=== PATIENT | female | born 1975 | race Caucasian/White ===

== ENCOUNTER 2019-09-22 17:36 | Inpatient (IN) | payer BC ==
[2019-09-22] MEDS ORDERED: Naloxone 0.4 MG/ML SDV IVPUSH PRN (18:47)
[2019-09-22] MEDS ORDERED: Ondansetron 4 MG/2 ML SDV IVPUSH PRN (18:47)
[2019-09-22] MEDS ORDERED: Metoprolol Succinate 50 MG Tab.ER PO ONE (18:47)
[2019-09-22] MEDS ORDERED: Pantoprazole 40 MG Vial IVPUSH SCH (19:00)
[2019-09-22] MEDS ORDERED: HYDROmorphone/Normal Saline 15 MG/30 ML PCA IV SCH (19:00)
[2019-09-22] MEDS: Dextrose 5%-Lactated Ringers 1,000 ML IV SCH (19:31)
[2019-09-23] MEDS: Dextrose 5%-Lactated Ringers 1,000 ML IV SCH ×3 (02:02→23:38)
[2019-09-23] MEDS ORDERED: Meropenem 500 MG SDV ONE (06:37)
[2019-09-23] MEDS ORDERED: Lidocaine 1% with EPINEPHrine 1:100,000 50 ML MDV ONE (06:37)
[2019-09-23] MEDS ORDERED: Bupivacaine 0.5% 50 ML MDV ONE (06:37)
[2019-09-23] MEDS ORDERED: Dexamethasone 4 MG/ML SDV ONE (07:12)
[2019-09-23] MEDS ORDERED: Glycopyrrolate 0.2 MG/ML 5 ML MDV ONE (07:12)
[2019-09-23] MEDS ORDERED: fentaNYL 250 MCG/5 ML SDV ONE ×2 (07:12→09:06)
[2019-09-23] MEDS ORDERED: Neostigmine Methylsulfate 1 MG/ML 5 ML Syringe ONE (07:12)
[2019-09-23] MEDS ORDERED: Rocuronium 50 MG/5 ML Vial ONE ×2 (07:12→08:34)
[2019-09-23] MEDS ORDERED: Succinylcholine 200 MG/10 ML MDV ONE (07:12)
[2019-09-23] MEDS ORDERED: Ondansetron 4 MG/2 ML SDV ONE (07:12)
[2019-09-23] MEDS ORDERED: Propofol 200 MG/20 ML SDV ONE (07:12)
[2019-09-23] MEDS ORDERED: cefOXitin 2 GM in Sodium Chloride 0.9% 50 ML IV ONE (07:30)
[2019-09-23] MEDS ORDERED: Ketamine 50 MG in Sodium Chloride 0.9% 49.5 ML IV SCH (07:30)
[2019-09-23] MEDS ORDERED: Magnesium Sulfate 3.7 GM in Sodium Chloride 0.9% 250 ML IV ONE (07:30)
[2019-09-23] MEDS ORDERED: Magnesium Sulfate 2.3 GM in Sodium Chloride 0.9% 100 ML IV SCH (07:30)
[2019-09-23] MEDS ORDERED: Ropivacaine 40 ML, dexAMETHasone 8 MG, EPINEPHrine 0.4 MG, Sodium Chloride 0.9% 37.6 ML NERVRT SCH ×4 (07:30)
[2019-09-23] MEDS ORDERED: Ketamine 500 MG/5 ML MDV IV SCH (07:30)
[2019-09-23] MEDS ORDERED: Morphine PF 150 MG/30 ML PCA Syringe IV PRN (07:31)
[2019-09-23] MEDS ORDERED: Scopolamine 1.5 MG Transdermal Patch ONE (07:33)
[2019-09-23] MEDS ORDERED: Naloxone 0.4 MG/ML SDV IV PRN (07:40)
[2019-09-23] MEDS ORDERED: Lactated Ringers 1,000 ML ONE (08:34)
[2019-09-23] MEDS ORDERED: Pantoprazole 40 MG Vial IVPUSH SCH ×2 (10:57→21:00)
[2019-09-23] MEDS ORDERED: Metoclopramide 10 MG/2 ML SDV IVPUSH PRN (10:57)
[2019-09-23] MEDS ORDERED: Acetaminophen 500 MG Tab PO PRN (10:57)
[2019-09-23] MEDS ORDERED: diphenhydrAMINE 50 MG/ML SDV IVPUSH PRN (10:57)
[2019-09-23] MEDS ORDERED: hydrOXYzine HCL 100 MG/2 ML SDV IM PRN (10:57)
[2019-09-23] MEDS ORDERED: Labetalol 20 MG/4 ML Syringe IVPUSH PRN (10:57)
[2019-09-23] MEDS ORDERED: Calcium Gluconate 10% 1 GM/10 ML SDV IVPUSH PRN (10:57)
[2019-09-23] MEDS: Cyclobenzaprine 10 MG Tab PO PRN (11:11)
[2019-09-23] MEDS ORDERED: LORazepam 2 MG/ML SDV IVPUSH PRN (12:16)
[2019-09-23] MEDS: Acetaminophen 1,000 MG in Premix Bag 1 BAG IV SCH ×2 (12:26→21:11)
[2019-09-23] MEDS: cefOXitin 2 GM in Sodium Chloride 0.9% 50 ML IV SCH ×2 (14:53→19:47)
[2019-09-23] MEDS: Citalopram 20 MG Tab PO SCH (14:53)
[2019-09-23] MEDS ORDERED: MVI, Adult with Vitamin K 10 ML, Thiamine 200 MG, Chromium/Copper/Mang/Selen/Zn 1 ML in... IV SCH ×4 (16:00)
[2019-09-23] MEDS: Heparin Sodium 5,000 Units/ML Vial SUBCUT SCH (17:35)
[2019-09-23] MEDS: Metoprolol Succinate 50 MG Tab.ER PO SCH (17:35)
[2019-09-23] MEDS: Celecoxib 200 MG Cap PO SCH (21:14)
[2019-09-23] MEDS: Nortriptyline 25 MG Cap PO SCH (21:15)
[2019-09-24] MEDS: cefOXitin 2 GM in Sodium Chloride 0.9% 50 ML IV SCH ×3 (01:44→13:52)
[2019-09-24] MEDS ORDERED: Iopamidol 612 MG/ML 50 ML SDV PO ONE (03:59)
[2019-09-24] MEDS: Acetaminophen 500 MG Tab PO SCH ×3 (04:31→20:41)
[2019-09-24] MEDS: Dextrose 5%-Lactated Ringers 1,000 ML IV SCH (04:36)
--- NOTE | 2019-09-24 04:40 | CRLCR ---
Indication: Post bariatric surgery Technique: Two views of the abdomen obtained following the administration of oral contrast. Comparison: None Findings/Impression: : Contrast opacifies the gastric pouch and traverses the gastrojejunostomy to opacify left abdominal and pelvic jejunal segments. A collection of contrast and gas in the left lower quadrant adjacent to a contrast opacified jejunal segment on the 2nd image which could be related to a bowel segment. Recommend follow-up to exclude an extraluminal collection. Contrast seen in the left colon from a prior administration. A nonobstructive bowel gas pattern. Abdominal skin armin, multiple abdominal sutures and cholecystectomy clips. No suspicious osseous abnormalities seen. Dictated by Todd Marte MD @ 09/24/2019 4:39:18 AM Dictated by: Todd Marte MD @ 09/24/2019 04:39:22 (Electronically Signed)
[2019-09-24] MEDS: Heparin Sodium 5,000 Units/ML Vial SUBCUT SCH ×2 (05:47→17:54)
[2019-09-24] MEDS ORDERED: Dextrose 5%-Lactated Ringers 1,000 ML IV SCH (07:15)
[2019-09-24] MEDS: Bisacodyl 5 MG Tab PO SCH ×2 (09:18→20:43)
[2019-09-24] MEDS: Docusate Sodium 100 MG Cap PO SCH ×2 (09:18→20:43)
[2019-09-24] MEDS: Celecoxib 200 MG Cap PO SCH ×2 (09:18→20:42)
[2019-09-24] MEDS: Citalopram 20 MG Tab PO SCH (09:18)
[2019-09-24] MEDS: Metoprolol Succinate 50 MG Tab.ER PO SCH (09:20)
[2019-09-24] MEDS: SCOPOLAMINE PATCH CHECK TOP SCH (12:04)
[2019-09-24] MEDS ORDERED: MVI, Adult with Vitamin K 10 ML, Thiamine 200 MG, Chromium/Copper/Mang/Selen/Zn 1 ML in... IV SCH ×4 (16:00)
[2019-09-24] MEDS ORDERED: oxyCODONE 5 MG Tab PO PRN (19:19)
[2019-09-24] MEDS ORDERED: Ondansetron 4 MG Tab.DIS PO PRN (19:29)
[2019-09-24] MEDS: Nortriptyline 25 MG Cap PO SCH (20:43)
[2019-09-24] MEDS ORDERED: Pantoprazole 40 MG Tab.CR PO SCH (21:00)
[2019-09-25] MEDS: Acetaminophen 500 MG Tab PO SCH (04:23)
[2019-09-25] MEDS: Heparin Sodium 5,000 Units/ML Vial SUBCUT SCH (05:26)
[2019-09-25] MEDS: Cyclobenzaprine 10 MG Tab PO PRN (07:17)
[2019-09-25] MEDS: Celecoxib 200 MG Cap PO SCH (08:25)
[2019-09-25] MEDS: Docusate Sodium 100 MG Cap PO SCH (08:25)
[2019-09-25] MEDS: Metoprolol Succinate 50 MG Tab.ER PO SCH (08:25)
[2019-09-25] MEDS: Bisacodyl 5 MG Tab PO SCH (08:25)
[2019-09-25] MEDS: Citalopram 20 MG Tab PO SCH (08:25)
[2019-09-25] MEDS: SCOPOLAMINE PATCH CHECK TOP SCH (08:26)
[2019-09-25] MEDS ORDERED: Cyanocobalamin (Vitamin B12) 1,000 MCG/ML SDV IM ONE (09:00)
[2019-09-25 10:36] VITALS: BP 102/71; PULSE 73
--- NOTE | 2019-09-26 18:46 | DISCH ---
ADMISSION DIAGNOSES: 1. Partial small bowel obstruction. 2. Status post Donna-en-Y gastric bypass surgery. 3. Unspecified surgical malabsorption. 4. B12 deficiency. 5. Migraine headaches. DISCHARGE DIAGNOSES: Exploratory laparotomy with: 1. Reduction of small bowel volvulus. 2. Small bowel resection. 3. Secondary enteroenterostomy to restore Donna-en-Y small bowel anatomy. 4. Excision of nodular lesion on surface of the omentum. Right colectomy and small bowel mesentery. 1. Repair of incarcerated incisional hernia. 2. Removal of intraperitoneal mesh. 3. Placement of Interceed mesh x2. POSTOPERATIVE DIAGNOSES: 1. Focal small bowel volvulus and stricture at the jejunojejunostomy. 2. 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 3. Recurrent incarcerated incisional hernia. 4. Peritoneal nodule overlying omentum 1.2 cm. 5. Potentially contaminated intraperitoneal mesh. 6. Date of surgery: 09/23/2019. Surgeon: Levi Smith MD. HISTORY: Trang Botello is a 44-year-old female, who was transferred from [place], [place] with a partial small bowel obstruction. She was transferred on 09/22/2019. She was stable, had a bowel movement after she got to the hospital, and after preoperative evaluation, discussion of possible risks and possible complications, she wished to proceed with surgical procedure. Surgery was on 09/23/2019. She had no operative complications. On postoperative day #1, IV was decreased to 80 mL per hour. Moore catheter was discontinued. She was started on bowel stimulation. Dulcolax 2 tablets p.o. b.i.d., Colace 100 mg b.i.d., and step 2 gastric bypass diet. She also was able to shower. On postoperative day #2, vital signs were stable, afebrile, oral intake adequate, having bowel movements, and activity was good, pain controlled, and was able to be discharged to home. PHYSICAL EXAMINATION: GENERAL: Lorraine Botello (Antonette) is a pleasant 44-year-old female, alert, orientated. VITAL SIGNS: Height 5 feet 3 inches, weight is 172 pounds, BMI is 30.5. TPR 96, 84, 18, blood pressure 107/70. HEENT: Negative. NECK: Supple. HEART: Regular rate and rhythm. LUNGS: Clear. ABDOMEN: Nondistended, soft. Aquacel dressing is on. Abdominal binder is on. EXTREMITIES: Without peripheral edema. DISPOSITION: Discharged to home. CONDITION: Stable and improving. FOLLOWUP: Appointment with Debby Fernando PA-C, on 10/03/2019 at 1:00 p.m. HOME MEDICATIONS: 1. Celebrex 200 mg p.o. b.i.d. #28. 2. Oxycodone 5 mg p.o. q.4 hours p.r.n. pain, #42. 3. She is to resume home medications. DIET: Step 3 gastric bypass diet. Drink 8 to 10 glasses of water a day. ACTIVITY: Walk at least 6 times daily inside your house. Driving: Do not drive for 1 week and while on pain medication. Shower/bathing, may shower. Keep operative site clean and dry. Wear abdominal binder for 6 weeks and then as tolerated. Remove Aquacel dressing on 09/28/2019. Notify provider if any fever, increased pain, nausea, or vomiting. SPECIAL INSTRUCTIONS: 1. Use incentive spirometer 10 times every hour while awake. 2. Walk 10 times around her car, [address] from the hospital to avoid getting a blood clot.
--- NOTE | 2019-09-27 15:23 | PN ---
DATE OF SERVICE: 09/24/2019 The patient has been afebrile with stable vital signs. No major problems were noted overnight. Drain output is quite high. We will back down on the IV rate. step- 2 diet today. I think we will leave her on the PROJECTION WELDING MACHINE OPERATOR for pain control today and most likely switch her over to some oral medicine tomorrow. Otherwise, maximize activity and work with pulmonary toilet. Levi Smith MD /[id number]
--- NOTE | 2019-09-27 16:07 | HP ---
The patient has been transferred from [facility] in [place] with a persistent bowel obstruction. She has moved her bowels some over the night consistent with the patient having some oral contrast getting through the area of partial obstruction, but her abdomen is still quite distended this morning, and we will clearly need to do something operatively. The plan would be to proceed with exploratory laparotomy with release of small bowel obstruction, possible bowel resection. If it appears feasible, we may revise the limb lengths to facilitate a little bit more weight loss depending on the overall appearance of the bowel and the current limb lengths. She is aware this may result in some more frequent bowel movements and it will need for a little bit more vigilance in terms of her nutritional status, but wishes to proceed in that direction if it intraoperatively appears to be appropriate. Otherwise, potential risks of the procedure including bleeding, infection, injury to the underlying viscera, leaks from GI tract closures as well as possible cardiopulmonary, septic, or hemorrhagic complications leading to were all discussed, and the patient wishes to proceed. Levi Smith MD /[id number]
--- NOTE | 2019-10-05 09:54 | OR ---
DATE OF PROCEDURE: 09/23/2019 SURGEON: Levi Smith MD PREOPERATIVE DIAGNOSIS: Small bowel obstruction. POSTOPERATIVE DIAGNOSIS: 1. Focal small bowel volvulus with stricture at jejunojejunostomy. 2. Cecal volvulus with obstruction of the ileocecal valve. 3. Recurrent incarcerated incisional hernia. 4. Peritoneal nodule overlying the omentum. 5. Potentially contaminated intraperitoneal mesh. OPERATIVE PROCEDURES: Exploratory laparotomy with: 1. Reduction of small bowel volvulus and closure of internal hernia (38788). 2. Small bowel resection (47154). 3. Secondary enteroenterostomy to restore small bowel Donna-en Y anatomy (87673). 4. Excision of nodular lesion on the surface of omentum (63988). 5. Right colectomy with some additional distal small bowel resection (70194). 6. Repair of recurrent incarcerated incisional hernia (18201). 7. Removal of intraperitoneal mesh (01101). 8. Placement of Interceed mesh x2 to limit recurrent adhesion formation between the pelvic and abdominal wall and underlying viscera (58814). ANESTHESIA: General. COMPUTER NETWORK SPECIALIST: Debby Fernando PA-C. INDICATION FOR PROCEDURE: This is a 44-year-old status post Donna-en-Y gastric bypass, presenting with small bowel obstruction. Clinically, this appears to be related to the jejunojejunostomy, based on preoperative imaging. Plan is to proceed with exploratory laparotomy with lysis of adhesions and small bowel resection as indicated, as well as additional procedures as felt necessary. Potential risks of the procedure including bleeding, infection, leaks from GI tract closures, problems with recurrence of bowel obstruction over time, as well as the possibility of cardiopulmonary, septic, or hemorrhagic complications leading to were discussed, and the patient wishes to proceed. DETAILS OF PROCEDURE: The patient was taken to the operating room and placed in a supine position. After general endotracheal anesthesia was induced, a Moore catheter was inserted and the abdomen prepped and draped. A midline incision from just below the umbilicus to a handsbreadth superior to the umbilicus was made and carried down through the full-thickness of the abdominal wall. On the superior aspect of the incision, the patient was noted to have recurrence of an incisional hernia above the previously placed mesh. The contents of this were excised. The mesh was then dissected down to the level of the lower end of the incision. Examination found 2 points of obstruction at this point, one was related to a small bowel volvulus with the small bowel rotating from a right to left direction through the mesentery of the jejunojejunostomy. Upon reduction of this, the patient was noted to have a tight stricture at the point where the Donna limb entered the jejunojejunostomy related to chronic distortion of that anastomosis. The patient was also noted to have a significant cecal volvulus with the ileocecal valve being obviously obstructed. The small bowel roughly 15 inches proximal to this was also reddened and had some hemorrhage within it as well, and a decision was then made to proceed with resection and revision of the jejunojejunostomy along with a right colectomy, including some of the distal small bowel. A 1.2 cm firm nodule on the peritoneal surface of the omentum was identified and excised and sent for histologic evaluation. Following this, the small bowel components of the jejunojejunostomy were divided at 3 points with VANESSA stapler, as well as the underlying mesentery. Initial GI tract continuity was established with anastomosis between what had been the distal-most biliopancreatic limb to the proximal-most common limb. This was a side- to-side enteroenterostomy with internal firing of the Endo-VANESSA 60 mm stapler. Common opening was closed transversely with the same stapler. Angles of anastomosis were reinforced with some 3-0 Vicryl stitch and the mesentery closed with a 2-0 silk stitch. The Donna-en-Y anatomy was then re-established with anastomosis between the Donna limb and the small bowel roughly 30 cm distal to the first anastomosis with the same sequence of staplers, and closures of the angles of anastomosis and mesenteric defect were as per the first anastomosis. At this point, the right colon was mobilized along the right pericolic gutter and mobilized medially. Some of the omentum was excised and the colon just to the right of the middle colic vessel was then divided. The small bowel was then divided roughly 15 cm proximal to the ileocecal valve, both of these with VANESSA staplers. The underlying mesentery was then divided with some vascular mesenteric staple loads with care taken to avoid injury to the right ureter and duodenum. The right colon was then delivered from the field. The ileocolic anastomosis was then accomplished with 2 internal firings of the Endo-VANESSA 60 mm stapler. Common opening was closed transversely with VANESSA armin as well, and the angles of anastomosis and mesenteric defect were closed with some 3-0 Vicryl stitch. The previously placed intraperitoneal mesh was felt to be at high risk for becoming infected, given the contaminating nature of the case, and this was then excised away from the abdominal wall. Once this was accomplished, the abdomen was irrigated with antibiotic- containing saline solution. Two Leoncio-Nava drains were then placed through stab wounds in the right and left abdomen and taken down toward the pelvis. The midline fascia was then approximated with #2 Vicryl stitch, which included repair of the incarcerated recurrent incisional hernia. Prior to closure, 2 sets of the Interceed mesh were placed underneath the incision, and from there, down toward the pelvis to displace those surfaces from the underlying viscera to limit recurrent adhesion formation. Once the fascia was then closed, the subcutaneous tissue was approximated with 2 layers of 3-0 Vicryl stitch deep and armin for the skin. Bilateral transversus abdominis plane blocks were then placed, and the fascia was also anesthetized with 1% lidocaine mixed with Marcaine. The patient was taken to the recovery room in satisfactory condition. Physician registered dental assistant, Debby Fernando, played an essential role in assisting in this case, helping to position the patient, retract structures as needed, as well as suturing and cutting sutures when indicated. Her presence improved patient safety and decreased operative time. Levi Smith MD /[id number]
== END 2019-09-25 11:50 | disposition home or self-care (01) | DRG 220 ==
LOC: JP.MS 17:36
PROVIDERS: ADMIT Surgery; ATTEND Surgery
PROC: 3E0M05Z Introduction of Adhesion Barrier into Peritoneal Cavity, Open Approach (ICD-10-PCS; principal; 2019-09-23)
PROC: 0DS80ZZ Reposition Small Intestine, Open Approach (ICD-10-PCS; principal; 2019-09-23)
PROC: 0DB80ZZ Excision of Small Intestine, Open Approach (ICD-10-PCS; principal; 2019-09-23)
PROC: 0DBF0ZZ Excision of Right Large Intestine, Open Approach (ICD-10-PCS; principal; 2019-09-23)
PROC: 0WQF0ZZ Repair Abdominal Wall, Open Approach (ICD-10-PCS; principal; 2019-09-23)
PROC: 0WPF0JZ Removal of Synthetic Substitute from Abdominal Wall, Open Approach (ICD-10-PCS; principal; 2019-09-23)
PROC: 0D160ZA Bypass Stomach to Jejunum, Open Approach (ICD-10-PCS; principal; 2019-09-23)
DX: K94.19 Other complications of enterostomy (principal); K56.2 Volvulus; K90.9 Intestinal malabsorption, unspecified; E53.8 Deficiency of other specified B group vitamins; G43.909 Migraine, unspecified, not intractable, without status migrainosus; Y83.8 Other surgical procedures as the cause of abnormal reaction of the patient, or of later complication, without mention of misadventure at the time of the procedure; K43.0 Incisional hernia with obstruction, without gangrene; R19.09 Other intra-abdominal and pelvic swelling, mass and lump; Z98.84 Bariatric surgery status; Z68.30 Body mass index [BMI] 30.0-30.9, adult
CPT/HCPCS: 36415; 74240; 80053; 82607; 82728; 82746; 83735; 84100; 85025; 85027; 88300; 88302; 88305; 88307; 94762; A9270-GY; C9113; J0131; J0171; J0330; J0694; J1100; J1170; J1644; J1790; J2020; J2185; J2270; J2405; J2704; J2710; J2765; J2795; J3010; J3410; J3411; J3420; J3475; J3490; J7050; J7120; J7121; Q9967

== ENCOUNTER 2020-03-29 10:45 | Inpatient (IN) | payer BC ==
[2020-04-05] MEDS ORDERED: Celecoxib 200 MG Cap PO ONE (05:30)
[2020-04-05] MEDS ORDERED: Acetaminophen 500 MG Tab PO ONE (05:30)
[2020-04-05] MEDS ORDERED: Dextrose 5%-Lactated Ringers 1,000 ML IV SCH (06:00)
[2020-04-05] MEDS ORDERED: Bupivacaine 0.5%/EPINEPHrine 1:200,000 50 ML MDV ONE (06:36)
[2020-04-05] MEDS ORDERED: Meropenem 500 MG SDV ONE (06:36)
[2020-04-05] MEDS ORDERED: Ondansetron 4 MG/2 ML SDV ONE (07:05)
[2020-04-05] MEDS ORDERED: Neostigmine Methylsulfate 1 MG/ML 5 ML Syringe ONE (07:05)
[2020-04-05] MEDS ORDERED: Rocuronium 50 MG/5 ML Vial ONE (07:05)
[2020-04-05] MEDS ORDERED: Dexamethasone 4 MG/ML SDV ONE (07:05)
[2020-04-05] MEDS ORDERED: Propofol 200 MG/20 ML SDV ONE (07:05)
[2020-04-05] MEDS ORDERED: Glycopyrrolate 0.2 MG/ML 5 ML MDV ONE (07:05)
[2020-04-05] MEDS ORDERED: fentaNYL 250 MCG/5 ML SDV ONE ×2 (07:07→07:38)
[2020-04-05] MEDS ORDERED: HYDROmorphone/Normal Saline 15 MG/30 ML PCA IV PRN (07:24)
[2020-04-05] MEDS ORDERED: Scopolamine 1.5 MG Transdermal Patch ONE (07:39)
[2020-04-05] MEDS: ceFAZolin 2 GM in Premix Bag 1 BAG IV ONE ×2 (07:53→21:02)
[2020-04-05] MEDS ORDERED: Ketamine 50 MG in Sodium Chloride 0.9% 49.5 ML IV SCH (08:00)
[2020-04-05] MEDS ORDERED: Naloxone 0.4 MG/ML SDV IV PRN (08:00)
[2020-04-05] MEDS ORDERED: Ketamine 500 MG/5 ML MDV IV SCH (08:00)
[2020-04-05] MEDS ORDERED: Ropivacaine 35 ML, dexAMETHasone 8 MG, EPINEPHrine 0.4 MG, Sodium Chloride 0.9% 42.6 ML NERVRT SCH ×4 (08:00)
[2020-04-05] MEDS ORDERED: Cyclobenzaprine 10 MG Tab PO PRN (09:59)
[2020-04-05] MEDS ORDERED: Ondansetron 4 MG/2 ML SDV IVPUSH PRN (10:00)
[2020-04-05] MEDS: Dextrose 5%-Lactated Ringers 1,000 ML IV SCH ×2 (10:00→14:14)
[2020-04-05] MEDS ORDERED: hydrOXYzine HCL 100 MG/2 ML SDV IM PRN (10:00)
[2020-04-05] MEDS ORDERED: Nortriptyline 25 MG Cap PO PRN (10:02)
[2020-04-05] MEDS: SCOPOLAMINE PATCH CHECK TOP SCH (11:00)
[2020-04-05] MEDS: ceFAZolin 2 GM in Premix Bag 1 BAG IV SCH ×2 (14:12→21:03)
[2020-04-05] MEDS: Acetaminophen 325 MG Tab PO SCH (21:03)
[2020-04-05] MEDS: Metoprolol Succinate 50 MG Tab.ER PO SCH (21:04)
[2020-04-05] MEDS: Citalopram 20 MG Tab PO SCH (21:05)
[2020-04-05] MEDS: Celecoxib 200 MG Cap PO SCH (21:05)
[2020-04-06] MEDS: Dextrose 5%-Lactated Ringers 1,000 ML IV SCH (00:19)
[2020-04-06] MEDS: Acetaminophen 325 MG Tab PO SCH ×4 (02:58→19:34)
[2020-04-06] MEDS: ceFAZolin 2 GM in Premix Bag 1 BAG IV SCH (05:29)
[2020-04-06] MEDS ORDERED: LINZESS 72 MCG PO SCH ×2 (09:00→21:00)
[2020-04-06] MEDS: HYDROmorphone 2 MG Tab PO PRN ×2 (10:07→19:37)
[2020-04-06] MEDS: Celecoxib 200 MG Cap PO SCH ×2 (10:14→20:35)
[2020-04-06] MEDS: Citalopram 20 MG Tab PO SCH (10:14)
[2020-04-06] MEDS: SCOPOLAMINE PATCH CHECK TOP SCH (10:15)
[2020-04-06] MEDS: Metoprolol Succinate 50 MG Tab.ER PO SCH (10:16)
[2020-04-06] MEDS ORDERED: Metoprolol Succinate 50 MG Tab.ER PO SCH (21:00)
[2020-04-06] MEDS ORDERED: Citalopram 20 MG Tab PO SCH (21:00)
[2020-04-07] MEDS: Acetaminophen 325 MG Tab PO SCH ×2 (03:41→10:02)
[2020-04-07] MEDS: HYDROmorphone 2 MG Tab PO PRN ×2 (03:41→10:02)
[2020-04-07 07:30] VITALS: BP 109/60; PULSE 58
[2020-04-07] MEDS: SCOPOLAMINE PATCH CHECK TOP SCH (09:58)
[2020-04-07] MEDS: Celecoxib 200 MG Cap PO SCH (10:03)
--- NOTE | 2020-04-08 07:20 | PN ---
DATE OF SERVICE: 04/06/2020 SUBJECTIVE: Trang is postop day 1. She states her pain is controlled using a RAISIN WASHER and she has been up ambulating. Vital signs stable. Oral intake 4280. Urine output is 4060. REVIEW OF SYSTEMS: Remainder of review of systems negative for any pertinent positives and negatives. OBJECTIVE: GENERAL: Trang is a pleasant 44-year-old female. She is alert and orientated. VITAL SIGNS: TPR is 98.8, 85, 16, blood pressure 118/55. HEENT: Negative. NECK: Supple. HEART: Regular rate and rhythm. LUNGS: Clear. ABDOMEN: Dressings dry and intact. Abdominal binder is on. EXTREMITIES: Without peripheral edema. ASSESSMENT: Laparoscopic repair of recurrent incarcerated incisional hernia with mesh and placement of Interceed mesh for recurrent incarcerated incisional hernia. Date of procedure: 04/05/2020. Surgeon: Levi Smith MD. PLAN: 1. Discontinue RAISIN WASHER and continuous pulse ox. 2. Saline lock IV. 3. Dilaudid 2 to 4 mg every 4 hours p.r.n. pain. 4. Dressing off, may shower. 5. Continue use of incentive spirometer and we will evaluate p.r.n. or in a.m. 6. Plan discharge in a.m. Debby Fernando PA-C /[id number]
--- NOTE | 2020-04-08 08:59 | DISCH ---
ADMISSION DIAGNOSES: Incisional hernia, SP Donna-en-Y gastric bypass surgery, unspecified surgical malabsorption, B12 deficiency, vitamin D deficiency, chronic constipation. DISCHARGE DIAGNOSIS: Laparoscopic repair of recurrent incarcerated incisional hernia with mesh, and placement of Interceed mesh. POSTOPERATIVE DIAGNOSIS: Recurrent incarcerated incisional hernia. Date of procedure: 04/05/2020. Surgeon: Levi Smith. HISTORY: Trang Botello is a pleasant 44-year-old female with recurrent incarcerated incisional hernia. After preoperative evaluation and discussion of possible risks and possible complications, she wished to proceed with surgical procedure. HOSPITAL COURSE: Trang had her surgery on 04/05/2020. She had no operative complications. On postoperative day #1, she continued with oral pain medication. She was able to shower. Ambulation was adequate. Oral intake and outputs normal, and her vital signs remained normal. On postoperative day 2, pain was controlled, activity was good, and she was able to be discharged to home without any complications. PHYSICAL EXAMINATION: GENERAL: Trang Botello is a pleasant 44-year-old female. VITAL SIGNS: Height is 5 feet 3 inches. Weight is 148 pounds. BMI is 26. TPR; 97.1, 58, 16. Blood pressure 109/60. HEENT: Negative. NECK: Supple. HEART: Regular rate and rhythm. LUNGS: Clear. ABDOMEN: Dressings dry and intact. Abdominal binder is on, with a pressure dressing over hernia site. EXTREMITIES: Without peripheral edema. DISPOSITION: Discharged home. CONDITION: Stable and improving. FOLLOWUP: Follow up with Debby Fernando PA-C, at [facility] on 04/16/2020 at 12:15 p.m. NEW MEDICATIONS: 1. Celebrex 200 mg p.o. b.i.d. #28. 2. Hydromorphone (Dilaudid) 2 to 4 mg every 4 hours p.r.n. pain, #42. 3. Tylenol 650 mg oral q.6 hours p.r.n. pain. 4. Zofran ODT 4 mg every 6 hours as needed, #30, for nausea. To resume home medications: 1. Citalopram 40 mg daily. 2. Vitamin B12 1000 mcg oral daily. 3. Vitamin B12 1000 mcg IM every 14 days. 4. Calcium citrate b.i.d. 5. Linzess 75 mcg mg oral daily. 6. Metoprolol XL 50 mg oral daily. 7. Multivitamin 3 tablets oral daily. 8. Nortriptyline 25 mg at bedtime. DIET: Step 4 gastric bypass diet. Drink 8 to 10 glasses of water a day. ACTIVITY: No lifting over 10 pounds for 6 weeks. OTHER ACTIVITY: Walk 6 times daily inside your home. Driving, do not drive for 1 week and while on pain medication. Shower/bathing, may shower. DISCHARGE INSTRUCTIONS: Notify provider if any fever, increased pain, swelling, redness, drainage, nausea, or vomiting. Wound incision care, keep site clean and dry. Wear abdominal binder with pressure dressing over hernia site for 6 weeks and then as tolerated. Special instruction: Use incentive spirometer 10 times every hour while awake. /[id number]
== END 2020-04-07 11:50 | disposition home or self-care (01) | DRG 227 ==
LOC: JP.MS 04-05 05:10 → JP.SDS 04-05 05:10 → EDSTATUS 04-05 07:15 → JP.MS 04-05 08:45
PROVIDERS: ADMIT Surgery; ATTEND Surgery
PROC: 0WUF4JZ Supplement Abdominal Wall with Synthetic Substitute, Percutaneous Endoscopic Approach (ICD-10-PCS; principal; 2020-04-05)
PROC: 3E0M45Z Introduction of Adhesion Barrier into Peritoneal Cavity, Percutaneous Endoscopic Approach (ICD-10-PCS; 2020-04-05)
DX: K43.2 Incisional hernia without obstruction or gangrene (principal); K91.2 Postsurgical malabsorption, not elsewhere classified; K59.09 Other constipation; E55.9 Vitamin D deficiency, unspecified; Z98.84 Bariatric surgery status
CPT/HCPCS: 36415; 80053; 81025; 82728; 83735; 84100; 85027; 94762; A9270-GY; C1781; J0131; J0171; J0690; J1100; J1170; J2020; J2185; J2405; J2704; J2710; J2795; J3010; J3490; J7121; U0002